=== PATIENT | male | born 1965 | race Caucasian/White ===

== ENCOUNTER 2019-03-22 07:37 | Emergency (ER) | payer BC ==
[2019-03-22 07:49] VITALS: BP 141/93; PULSE 70; TEMP 98.6; BMI 26.4
--- NOTE | 2019-03-22 08:00 | PDOC ---
History of Present Illness - General Chief Complaint: Injury Stated Complaint: RIGHT HAND SWELLING Time Seen by Provider: 03/22/19 07:52 - History of Present Illness Initial Comments: 03/22/19 08:03 Chief complaint: Pain right third finger and palm HPI: Patient noticed sudden onset of pain, swelling and redness yesterday involving the volar surface of the right third finger and palmar surface of the distal third metacarpal. This occurred while he was starting his car. He happened to have a pair of latex gloves on his hand. The pain lasted approximately 20 minutes and then subsided. This morning however the finger and palm remain painful red and swollen. Review of systems: No fever/chills, hyperextension or hyperflexion injury, pain swelling erythema or heat proximally. No skin injury or penetrating trauma was noted Past medical history: Hypothyroid on Synthroid, osteoarthritis of the knees Social/family history reviewed and noncontributory Physical exam: Alert and oriented well-developed well-nourished no acute distress cooperative Afebrile, vital signs normal Right hand: Swelling and erythema primarily of the proximal phalanx of the right third finger, volar and lateral aspects. This extends to the palm, over the distal metacarpal and flexor tendon. There is minimal pain with extension of the finger. Sensation is intact. Capillary refill is prompt and full. There is full function of the flexor digitorum profundus and flexor digitorum superficialis. Impression: Differential includes tendinitis, inadvertent insect bite with allergic reaction, or early infection, unnoticed penetrating trauma/fb. Plan: X-ray and further evaluation and treatment pending results. Past History - Past Medical History Allergies/Adverse Reactions: Allergies Allergy/AdvReac Type Severity Reaction Status Date / Time No Known Allergies Allergy Verified 03/22/19 07:38 Home Medications: Ambulatory Orders Ezetimibe/Simvastatin [Vytorin 10-20 mg Tablet] 1 each PO HS 11/07/11 Levothyroxine [Synthroid -] 25 mcg PO DAILY 11/07/11 Cephalexin Monohydrate [Keflex] 500 mg PO Q6H #30 capsule 03/22/19 Ibuprofen [Motrin -] 400 mg PO TID #20 tablet 03/22/19 Anemia: No Asthma: No Cancer: No Cardiac Disorders: No CVA: No COPD: No CHF: No Dementia: No Diabetes: No GI Disorders: Yes (GERD) Disorders: No HTN: No Hypercholesterolemia: Yes (DX 2006) Liver Disease: No Seizures: No Thyroid Disease: Yes (HYPOTHYROIDISM) - Surgical History Abdominal Surgery: No Appendectomy: No Cardiac Surgery: No Cholecystectomy: No Lung Surgery: No Neurologic Surgery: No Orthopedic Surgery: Yes (RIGHT KNEE ARTHROSCOPY X 2-) - Psycho Social/Smoking Cessation Hx Smoking Status: No Smoking History: Never smoked Have you smoked in the past 12 months: No Number of Cigarettes Smoked Daily: 0 Information on smoking cessation initiated: No Hx Alcohol Use: No Drug/Substance Use Hx: No Substance Use Type: Alcohol Hx Substance Use Treatment: No *Physical Exam - Vital Signs Last Vital Signs Temp Pulse Resp BP Pulse Ox 98.6 F 70 20 141/93 99 03/22/19 07:38 03/22/19 07:38 03/22/19 07:38 03/22/19 07:38 03/22/19 07:38 Medical Decision Making - Medical Decision Making 03/22/19 08:53 X-ray: Negative Finger immobilized in a splint and sling applied for elevation. Patient comfortable afterwards, no distal numbness tingling pain or weakness Motrin and Keflex prescribed. Patient and his were informed of the potential seriousness of hand infections and the absolute necessity of close monitoring and follow-up. They understand and agree. Follow-up 2 days, sooner if worse. Fully ambulatory and in no significant pain or other distress at discharge to follow-up as directed Discharge - Discharge Information Problems reviewed: Yes Clinical Impression/Diagnosis: Tendinitis Condition: Stable Disposition: HOME - Admission No - Additional Discharge Information Prescriptions: Cephalexin Monohydrate [Keflex] 500 mg PO Q6H #30 capsule Ibuprofen [Motrin -] 400 mg PO TID #20 tablet - Follow up/Referral Referrals: Federico Skelton MD [Staff Physician] - 2 Days - Patient Discharge Instructions Patient Printed Discharge Instructions: DI for Tendinitis Additional Instructions: Rest, elevate to reduce swelling and inflammation, anti-inflammatory medication and antibiotic as directed Recheck hand specialist in 2 days if symptoms persist or worsen. Hand infections can be rapidly progressive and destructive if not treated in a timely fashion, and can result in permanent disability. It is important to follow-up as directed. - Post Discharge Activity
== END 2019-03-22 09:01 | disposition home or self-care (01) ==
LOC: FER 07:37
PROC: 2W3JX1Z Immobilization of Right Finger using Splint (ICD-10-PCS; principal; 2019-03-22)
DX: M77.9 Enthesopathy, unspecified (principal)
CPT/HCPCS: 73130-TC-RT-FY; 73140-TC-RT-FY; 99283-25